=== PATIENT | female | born 1995 | race Hispanic/Latino ===

== ENCOUNTER 2016-11-01 01:07 | Emergency (ER) | payer SELFPAY ==
[2016-11-01] MEDS ORDERED: Sodium Chloride 0.9% 1,000 ML ONE (01:33)
[2016-11-01] MEDS ORDERED: Ondansetron HCl/PF 4 MG/2 ML Vial ONE (01:33)
[2016-11-01 01:40] LABS: #Basophils 0.1 thou/uL (0.0-0.2); #Eosinphils 0.1 thou/uL (0.0-0.7); #Lymphocytes 3.6 thou/uL (1.20-3.40); #Monocytes 0.9 thou/uL (0.11-0.59); #Neutrophils 4.4 thou/uL (1.40-6.50); %Basophils 1.3 % (0.0-1.0); %Eosinophils 1.1 % (0.0-10.0); %Lymphocytes 39.5 % (28.0-48.0); %Monocytes 9.9 % (0.0-4.0); %Neutrophils 48.3 % (31.0-61.0); Hemoglobin 15.6 g/dL (12.0-16.0); Mean Corpuscular HGB CONC 32.8 g/dL (32.0-36.0); Mean Corpuscular Hemoglobin 28.3 pg (25.0-35.0); Mean Corpuscular Volume 86.3 fl (77.0-87.0); Mean Platelet Volume 6.8 fL (7.4-10.4); Platelet Count 338 thou/uL (130-400); RBC Distribution Width 11.5 % (11.5-14.5); Red Blood Cell (RBC) Count 5.51 mill/uL (4.00-5.20); White Blood Cell (WBC) Count 9.1 thou/uL (4.8-10.8)
[2016-11-01 01:53] LABS: ALT (SGPT) 21 U/L (0-55); AST (SGOT) 22 U/L (5-34); Alcohol 164 mg/dL (Less than 10); Alkaline Phosphatase 56 U/L (40-150); Anion Gap 18 mmol/L (10-20); BUN (Urea Nitrogen) 12 mg/dL (7.0-18.7); Bilirubin, Total 0.4 mg/dL (0.2-1.2); Calc. Creatinine Clearance 0 mL/min (70-130); Calcium 9.8 mg/dL (7.8-10.44); Carbon Dioxide 22 mmol/L (22-29); Chloride 108 mmol/L (98-107); Estimated GFR-MDRD 84; Globulin 3.4 g/dL (2.4-3.5); Glucose 98 mg/dL (70-105); Potassium 3.8 mmol/L (3.5-5.1); Protein, Total 8.4 g/dL (6.0-8.3); Sodium 144 mmol/L (136-145)
== END 2016-11-01 02:46 | disposition home or self-care (01) ==
LOC: NAV ERS 01:07
DX: F10.129 Alcohol abuse with intoxication, unspecified (principal); R11.10 Vomiting, unspecified
CPT/HCPCS: 80053; 80307; 85025; 93005; 96361; 96365; J2405; J7050

== ENCOUNTER 2017-02-22 15:13 | Emergency (ER) | payer SELFPAY ==
[2017-02-22] MEDS ORDERED: Dextrose 5 %-0.45 % NaCl 1,000 ML ONE (15:36)
[2017-02-22] MEDS ORDERED: Promethazine HCl 25 MG/ML VIAL ONE (15:36)
[2017-02-22] MEDS ORDERED: Ketorolac Tromethamine 30 MG/ML VIAL ONE (15:36)
== END 2017-02-22 17:03 | disposition home or self-care (01) ==
LOC: NAV ERS 15:13
DX: S16.1XXA Strain of muscle, fascia and tendon at neck level, initial encounter (principal); F41.0 Panic disorder [episodic paroxysmal anxiety]; X58.XXXA Exposure to other specified factors, initial encounter
CPT/HCPCS: 36416; 96361; 96374; 96375; J1885; J2550; J7042

== ENCOUNTER 2017-07-13 01:09 | Emergency (ER) | payer SELFPAY | END 2017-07-13 02:20 | disposition home or self-care (01) | LOC: NAV ERS 01:09 | DX: A60.04 Herpesviral vulvovaginitis (principal); F41.9 Anxiety disorder, unspecified | CPT/HCPCS: 99283 ==

== ENCOUNTER 2021-09-23 11:08 | Emergency (ER) | payer BC, SELFPAY ==
[2021-09-23] MEDS ORDERED: predniSONE 20 MG TAB ONE (11:53)
[2021-09-23] MEDS ORDERED: diphenhydrAMINE 25 MG CAP ONE (11:53)
== END 2021-09-23 12:01 | disposition home or self-care (01) ==
LOC: NAV ERS 11:08
DX: L50.9 Urticaria, unspecified (principal); E28.2 Polycystic ovarian syndrome; Z79.84 Long term (current) use of oral hypoglycemic drugs; Z79.899 Other long term (current) drug therapy
CPT/HCPCS: 99282; J7512

== ENCOUNTER 2024-03-23 12:52 | Emergency (ER) | payer BC, OTHER, SELFPAY | END 2024-03-23 13:25 | disposition home or self-care (01) | LOC: NAV ERS 12:52 | DX: M79.81 Nontraumatic hematoma of soft tissue (principal) | CPT/HCPCS: 99283 ==

== ENCOUNTER 2024-05-10 07:18 | Emergency (ER) | payer OTHER ==
[2024-05-10] MEDS ORDERED: Sodium Chloride 0.9% 1,000 ML ONE (08:23)
[2024-05-10] MEDS ORDERED: Metoclopramide HCl 10 MG (2 mL) VIAL ONE (08:23)
[2024-05-10] MEDS ORDERED: Sodium Chloride 0.9% 100 ML ONE (08:23)
[2024-05-10 08:28] LABS: #Basophils 0.1 thou/uL (0.0-0.2); #Eosinophils 0.1 thou/uL (0.0-0.7); #Lymphocytes 3.2 thou/uL (1.20-3.40); #Monocytes 0.6 thou/uL (0.11-0.59); #Neutrophils 3.2 thou/uL (1.40-6.50); %Basophils 1.2 % (0.0-1.0); %Lymphocytes 44.3 % (21.0-51.0); %Monocytes 8.3 % (0.0-10.0); %Neutrophils 44.2 % (42.0-75.0); Hematocrit 43.4 % (36.0-47.0); Hemoglobin 14.6 g/dL (12.0-16.0); Mean Corpuscular HGB CONC 33.7 g/dL (32.0-36.0); Mean Corpuscular Volume 83.3 fl (78.0-98.0); Mean Platelet Volume 7.5 fL (7.4-10.4); Platelet Count 282 10x3/uL (130-400); RBC Distribution Width 10.7 % (11.5-14.5); Red Blood Cell (RBC) Count 5.21 mill/uL (4.20-5.40); White Blood Cell (WBC) Count 7.1 10x3/uL (4.8-10.8)
[2024-05-10] MEDS ORDERED: Acetaminophen 325 MG TAB ONE (08:50)
[2024-05-10 09:10] LABS: Anion Gap 16 mmol/L (10-20); BUN (Urea Nitrogen) 9 mg/dL (7.0-18.7); Calc. Creatinine Clearance 0 mL/min (70-130); Carbon Dioxide 18 mmol/L (22-29); Chloride 107 mmol/L (98-107); Potassium 4.8 mmol/L (3.5-5.1); Sodium 136 mmol/L (136-145)
[2024-05-10 09:11] LABS: ALT (SGPT) 32 U/L (8-55); AST (SGOT) 58 U/L (5-34); Albumin 3.5 g/dL (3.5-5.0); Alkaline Phosphatase 39 U/L (40-110); Bilirubin, Total 0.3 mg/dL (0.2-1.2); Calcium 9.7 mg/dL (7.8-10.44); Estimated GFR 103; Globulin 4.2 g/dL (2.4-3.5); Glucose 98 mg/dL (70-105); Lipase 47 U/L (8-78); Protein, Total 7.7 g/dL (6.0-8.3)
[2024-05-10 09:37] LABS: Bilirubin Small (Negative); Blood, Urine Trace (Negative); Clarity Clear (Clear); Glucose, Urine (Dipstick) Negative (Negative); Ketone, Urine Trace mg/dL (Negative); Leukocyte Negative (Negative); Nitrite Negative (Negative); Protein, Urine (Dipstick) Trace mg/dL (Neg-Trace); Specific Gravity, Urine 1.025 (1.005-1.030); pH, Urine 5.5 (5.0-9.0)
[2024-05-10 09:48] LABS: CAUTI Indications for Culture Pregnancy; RBC/HPF 0-3 HPF (0-3); Squamous Epithelial 0-3 HPF (0-3); WBC/HPF 0-3 HPF (0-3)
[2024-05-10 09:49] LABS: Bacteria/HPF Rare-Few HPF (None Seen)
[2024-05-10 09:50] LABS: Urine Culture Reflex No No; Urine Culture Reflex Yes Yes
== END 2024-05-10 10:05 | disposition home or self-care (01) ==
LOC: NAV ERS 07:18
DX: O21.0 Mild hyperemesis gravidarum (principal); Z3A.10 10 weeks gestation of pregnancy
CPT/HCPCS: 80053; 81001; 83690; 84702; 85025; 87086; 96365; J2765; J7030

== ENCOUNTER 2024-08-24 20:06 | Emergency (ER) | payer OTHER ==
[2024-08-24] MEDS ORDERED: diphenhydrAMINE 25 MG CAP ONE (20:40)
[2024-08-24] MEDS ORDERED: Acetaminophen 500 MG TAB ONE (20:40)
[2024-08-24] MEDS ORDERED: Sodium Chloride 0.9% 0 ML ONE (20:40)
[2024-08-24 21:25] LABS: Bilirubin Negative (Negative); Blood, Urine Negative (Negative); Glucose, Urine (Dipstick) 100 mg/dL (Negative); Ketone, Urine Negative (Negative); Leukocyte Negative (Negative); Nitrite Negative (Negative); Protein, Urine (Dipstick) Negative (Neg-Trace)
[2024-08-24 21:30] LABS: CAUTI Indications for Culture Pregnancy; Clarity Slightly Cloudy (Clear); RBC/HPF 0-3 HPF (0-3); Squamous Epithelial 0-3 HPF (0-3)
[2024-08-24 21:31] LABS: Bacteria/HPF 1+ HPF (None Seen); Urine Culture Reflex Yes Yes
[2024-08-24] MEDS ORDERED: Cephalexin 500 MG CAP ONE (21:33)
== END 2024-08-24 21:55 | disposition home or self-care (01) ==
LOC: NAV ERS 20:06
DX: O23.42 Unspecified infection of urinary tract in pregnancy, second trimester (principal); N39.0 Urinary tract infection, site not specified; O99.342 Other mental disorders complicating pregnancy, second trimester; F41.9 Anxiety disorder, unspecified; O99.891 Other specified diseases and conditions complicating pregnancy; R51.9 Headache, unspecified; Z3A.25 25 weeks gestation of pregnancy
CPT/HCPCS: 81001; 87086; J7030